=== PATIENT | male | born 1955 | race African-American/Black ===

== ENCOUNTER → 2021-10-11 | Outpatient (CLI) | payer MEDICARE, MEDICAID ==
[~2021-10-11] MED LIST: ASPIRIN 32325 MG/TAB PO; BENAZEPRIL40 MG PO; BP MED; CEPHALEXIN500 M1 PO; CLEOCIN HC150 MG/CAP PO; COMBIVENT INH14.7 GM IH; FORT1000TA PO; GLUCOPHAGE; IMDUR 60MG60 MG/TAB PO; IPRATROPIUM BROM3 M1 IH; KLOR-CON 1010 MEQ PO; LASIX40 MG PO; LIPITOR 40MG TA40 MG PO; LORTAB 7.5/5001 TAB PO; LOTENSIN40 MG PO; NORVASC 10MG10 MG PO; PLAVIX 75MG TAB75 MG PO; PROSCAR 5MG5 MG PO; TENORMIN100 MG PO; TYLENOL 325MG325 MG PO; VASOTEC20 MG PO
== END ==
LOC: COL.RAD 09:40
DX: Z12.2 Encounter for screening for malignant neoplasm of respiratory organs (principal); Z87.891 Personal history of nicotine dependence